=== PATIENT | female | born 1930 | race Caucasian/White ===

== ENCOUNTER 2018-01-27 10:14 | Emergency (ER) | payer MEDICARE ==
[2018-01-27 12:05] VITALS: BP 120/53
--- NOTE | 2018-01-27 12:31 | UC ---
Cardiac HPI - HPI Summary HPI Summary: Pt c/o right side rib pain and abrasions on back s/p slipping and falling from standing and hitting edge of wooden bookshelf 1 night ago. - History of Current Complaint Chief Complaint: UCTrauma Stated Complaint: SCRATCHES AND BRUISES FROM A FALL Time Seen by Provider: 01/27/18 11:55 Hx Obtained From: Patient Onset/Duration: Sudden Onset, Lasting Days, Still Present Timing: Constant Initial Severity: Mild Current Severity: Moderate Pain Intensity: 6 Chest Pain Location: Right Lateral Character: Dull/Aching Aggravating Factor(s): Movement, Deep Breaths Alleviating Factor(s): Rest Associated Signs & Symptoms: Positive: Negative - Risk Factors Pulmonary Embolism Risk Factors: Smoking Cardiac Risk Factors: Smoking Atrial Fibrillation: Coronary Artery Disease TAD Risk Factors: Smoking AMI/ACS Risk Factors: Smoking - Allergy/Home Medications Allergies/Adverse Reactions: Allergies Allergy/AdvReac Type Severity Reaction Status Date / Time No Known Allergies Allergy Verified 01/27/18 12:05 Home Medications: Home Medications Acetaminop/Codeine 30 MG TAB* [Tylenol/Codeine 30 MG TAB*] 1 tab PO DAILY [History Confirmed 01/27/18] Albuterol HFA INHALER* [Ventolin HFA Inhaler*] 1 puff INH Q6HR PRN 01/27/18 [ History Confirmed 01/27/18] Aspirin EC TAB* [Ecotrin EC Low Dose 81 MG*] 81 mg PO DAILY 01/27/18 [History Confirmed 01/27/18] Atorvastatin* [Lipitor*] 40 mg PO 1700 01/27/18 [History Confirmed 01/27/18] Cholecalciferol TAB* [Vitamin D TAB*] 2,000 units PO DAILY 01/27/18 [History Confirmed 01/27/18] Cyanocobalamin TAB* [Vitamin B12 TAB*] 1,000 mcg PO DAILY 01/27/18 [History Confirmed 01/27/18] Docusate CAP* [Colace Cap*] 200 mg PO BEDTIME 01/27/18 [History Confirmed ] FLUoxetine CAP* [PROzac CAP*] 40 mg PO DAILY 01/27/18 [History Confirmed ] Fenofibrate 160 mg PO DAILY 01/27/18 [History Confirmed 01/27/18] Ferrous Sulfate [Iron High-Potency] 325 mg PO BID 01/27/18 [History Confirmed ] Furosemide TAB* [Lasix TAB*] 40 mg PO DAILY PRN 01/27/18 [History Confirmed ] Levothyroxine TAB* [Synthroid TAB*] 137 mcg PO 0800 01/27/18 [History Confirmed 01/27/18] Nitroglycerin TAB 0.4 MG* 0.4 mg SL Q5M PRN 01/27/18 [History Confirmed 01/27/18 ] Omeprazole CAP* [Prilosec CAP* 20 MG] 20 mg PO DAILY 01/27/18 [History Confirmed 01/27/18] Psyllium Husk [Sm Fiber] 2 tab PO BID 01/27/18 [History Confirmed 01/27/18] Sucralfate TAB* [Carafate*] 1 gm PO TID 01/27/18 [History Confirmed 01/27/18] Zolpidem TAB* [Ambien TAB*] 10 mg PO BEDTIME PRN 01/27/18 [History Confirmed ] cloNIDine 0.1 MG PATCH* [[id number]-[id number] 0.1 mg Patch*] 1 patch .SEE ORDER SEE INSTRUCTIONS 01/27/18 [History Confirmed 01/27/18] PMH/Surg Hx/FS Hx/Imm Hx Previously Healthy: Yes Cardiovascular History: Cardiac Disease - Surgical History Surgical History: Yes Surgery Procedure, Year, and Place: gallbladder removed - Family History Known Family History: Positive: Cardiac Disease - Social History Occupation: Retired Lives: Alone Alcohol Use: Occasionally Substance Use Type: None Smoking Status (MU): Light Every Day Tobacco Smoker Type: Cigarettes Have You Smoked in the Last Year: Yes Review of Systems Constitutional: Negative Skin: Other - 4 linear abrasions on mid right side back. scabbed over, healing non tender Eyes: Negative ENT: Negative Respiratory: Negative Cardiovascular: Negative Gastrointestinal: Negative Genitourinary: Negative Motor: Decreased ROM - chest/trunk Neurovascular: Negative Musculoskeletal: Arthralgia - right side ribs, Myalgia Neurological: Negative Psychological: Negative Is Patient Immunocompromised?: No All Other Systems Reviewed And Are Negative: Yes Physical Exam Triage Information Reviewed: Yes Appearance: Well-Appearing Vital Signs: Initial Vital Signs Temp 97.9 F 01/27/18 11:56 Pulse 78 01/27/18 11:56 Resp 16 01/27/18 11:56 BP 120/53 01/27/18 11:56 Pulse Ox 99 01/27/18 11:56 Vital Signs Reviewed: Yes Eye Exam: Normal ENT: Positive: Hearing grossly normal Dental Exam: Normal Neck exam: Normal Respiratory Exam: Normal Respiratory: Positive: No respiratory distress Cardiovascular: Positive: Murmur:Sys:Grade _?_/ Abdominal Exam: Normal Musculoskeletal: Positive: Other: - tenderness right lateral right ribs 8 and 9 Neurological Exam: Normal Psychological Exam: Normal Skin Exam: Other - scabbed linear abrasions (4) posterior back each measuring between 4-5 cm in lengtha nd 1-2 cm in width. dried scabs abrasions healing, no erythema, no purulent darinage, non tender Diagnostics - Radiology No standard instances Radiology Interpretation Completed By: Radiologist - IMPRESSION: NO ACUTE DISPLACED RIB FRACTURE. NO PNEUMOTHORAX. - Differential Diagnoses - Chest Pain Differential Diagnosis/HQI/PQRI: Chest Wall - Clinical Impression Provider Diagnoses: right rib contusion. abrasions Discharge - Sign-Out/Discharge Documenting (check all that apply): Patient Departure All imaging exams completed and their final reports reviewed: Yes - Discharge Plan Condition: Stable Disposition: HOME Patient Education Materials: Abrasion (ED), Rib Contusion (ED) Referrals: Jasmina Tolentino NP [Primary Care Provider] - If Needed - Billing Disposition and Condition Condition: STABLE Disposition: Home
--- NOTE | 2018-01-27 12:51 | RAD ---
HISTORY: fall from standing onto wooden bookshelf COMPARISONS: None VIEWS: 6 , Frontal view of the chest with frontal and oblique views of the right hemithorax. FINDINGS: There are chronic appearing fractures of the right fifth and sixth ribs. There is no appreciable acute displaced fracture. There is no thorax. Degenerative changes noted of the spine. The patient is status post median sternotomy. The visualized lungs clear. IMPRESSION: NO ACUTE DISPLACED RIB FRACTURE. NO PNEUMOTHORAX.
== END 2018-01-27 13:01 | disposition home or self-care (01) ==
LOC: UCCORT 10:14
DX: T14.8XXA Other injury of unspecified body region, initial encounter (principal); S20.20XA Contusion of thorax, unspecified, initial encounter; W01.190A Fall on same level from slipping, tripping and stumbling with subsequent striking against furniture, initial encounter; Y92.9 Unspecified place or not applicable; F17.210 Nicotine dependence, cigarettes, uncomplicated
CPT/HCPCS: 99212; G0463